=== PATIENT | male | born 1990 | race Caucasian/White ===

== ENCOUNTER 2024-05-11 21:40 | Emergency (ER) | payer MEDICAID, SELFPAY ==
--- NOTE | ~2024-05-11 | XR_ITS ---
EXAMINATION: XR FOOT, RIGHT CLINICAL INFORMATION: foot pain swelling no injury COMPARISON: None available. TECHNIQUE: AP, lateral, and oblique views of the right foot. FINDINGS: The bone mineralization is normal. No fracture. Alignment is anatomic. Joint spaces are maintained. There appears to be mild soft tissue swelling about the foot. XR/XR foot RT min 3V IMPRESSION: No acute osseous abnormality. There appears to be mild soft tissue swelling about the foot. Electronically signed by: Daniel Maravilla MD 05/12/2024 04:11 AM JEWE[facility] DANIELS
[2024-05-11 21:46] VITALS: BP 137/86; PULSE 84; RESP 16; TEMP 36.1; O2SAT 98; BMI 30.4
--- NOTE | 2024-05-12 02:35 | ED_ITS ---
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 Related Data Previous Rx's ?Medication ?Instructions ?Recorded cephalexin 500 mg capsule 500 mg PO QID 10 days #40 caps 05/12/24 doxycycline hyclate 100 mg tablet 100 mg PO BID #20 tabs 05/12/24 Allergies Allergy/AdvReac Type Severity Reaction Status Date / Time No Known Allergies Allergy Verified 05/11/24 21:46 Review of Systems Review of Systems: Yes all other systems are reviewed and are negative [facility] Social History Social History Advance Directives: No Do you have a plan to hurt others: No Plan Physical Exam Vital Signs: Vital Signs: Last Vital Signs Temp 97.0 F 05/12/24 02:51 Pulse 84 05/12/24 02:51 Resp 16 05/12/24 02:51 BP 137/86 05/12/24 02:51 Pulse Ox 98 05/12/24 02:51 O2 Del Method Room Air 05/12/24 02:51 BMI result Body Mass Index 30.4 Appearance: Alert. Oriented X3. No acute distress. ENT: Pharynx normal. Oral Mucosa moist Neck: Normal inspection. Neck supple. CVS: Normal heart rate and rhythm. Pulses normal. Respiratory: No respiratory distress. Equal air entry bilateral, no wheezing/rales/rhonchi Skin: Skin warm and dry. Normal skin color. Normal skin turgor. Extremities: No lower extremity edema. Slight swelling of the toes between the toes soft macerated skin Neuro: Oriented X 3. Medications Administered Discontinued Medications Generic Name Dose Route Start Last Admin Trade Name Freq PRN Reason Stop Dose Admin Cephalexin HCl 500 mg 05/12/24 02:35 05/12/24 02:47 Cephalexin 500 Mg Capsule PO 05/12/24 02:36 500 mg ONCE ONE Administration Doxycycline Monohydrate 100 mg 05/12/24 02:35 05/12/24 02:47 Doxycycline Monohydrate 100 Mg Capsule PO 05/12/24 02:36 100 mg ONCE ONE Administration Medical Decision Making Medical Decision Making [facility] Narrative: Patient with inflamed toes likely from wearing shoes for long hours slight tenderness and erythema prescribed doxycycline cephalexin Discharge Plan Discharge Clinical Impression: Cellulitis Patient Disposition: Home, Self-Care Instructions: Cellulitis (ED) Additional Instructions: Local care as advised Take antibiotic as prescribed Follow with your PCP if not better Cleaned your feet with peroxide and put gauze is in between the toe Prescriptions: New cephalexin 500 mg capsule 500 mg PO QID 10 Days Qty: 40 0RF doxycycline hyclate 100 mg tablet 100 mg PO BID Qty: 20 0RF Interventions: ED Discharge Assessment Last Done: 05/12/24 02:51 Discharge Date/Time: 05/12/24 02:51 Print Language: Persian
[2024-05-12] MEDS: Doxycycline Monohydrate 100 MG CAPSULE PO (02:47)
[2024-05-12] MEDS: cephALEXin 500 MG CAPSULE PO (02:47)
[2024-05-12 02:51] VITALS: BP 137/86; PULSE 84; RESP 16; TEMP 36.1; O2SAT 98
== END 2024-05-12 02:51 | disposition home or self-care (01) ==
PROVIDERS: Emergency Provider Internal Medicine
DX: L03.115 Cellulitis of right lower limb (principal); R60.0 Localized edema
CPT/HCPCS: 73630; 99282; 99283